=== PATIENT | male | born 1985 | race Caucasian/White ===

== ENCOUNTER 2023-08-26 09:11 | Emergency (ER) | payer OTHER ==
[~2023-08-26] VITALS: Ht 177.8 cm; Wt 100.2 kg
[2023-08-26 09:21] VITALS: BP 147/88; TEMP 98.8; O2SAT 100
[2023-08-26] MEDS ORDERED: METH4TAB3 PO (09:36)
[2023-08-26] MEDS ORDERED: FLUC150T PO (09:39)
[2023-08-26] MEDS ORDERED: CLOT30SO2 TP (09:39)
[2023-08-26] MEDS ORDERED: dexaMETHasone SOD PHOSPHATE 10 MG/ML VIAL ONE (09:42)
[2023-08-26] MEDS ORDERED: dexaMETHasone SOD PHOSPHATE 4 MG/ML VIAL IM ONE (10:00)
== END 2023-08-26 09:50 | disposition home or self-care (01) ==
LOC: ER 09:18
DX: L30.9 Dermatitis, unspecified (principal); Z60.2 Problems related to living alone
CPT/HCPCS: 99283; 96372; J1100